=== PATIENT | male | born 1980 | race Caucasian/White ===

== ENCOUNTER 2022-06-08 14:12 | Emergency (ER) | payer OTHER ==
[2022-06-08 14:55] LABS: HEMOGLOBIN 15.2 gm/dl (14.0-17.5); RED BLOOD COUNT 5.19 M/UL (4.20-5.50); WHITE BLOOD COUNT 12.2 K/UL (4.5-11.0)
[2022-06-08 15:27] LABS: BUN/CREATININE RATIO 18 (0-10)
[2022-06-08] MEDS ORDERED: HYDROXYZINE HCL25 MG PO (16:33)
== END 2022-06-08 18:50 | disposition home or self-care (01) ==
LOC: ER1 14:12
PROVIDERS: Emergency Medicine
DX: F41.9 Anxiety disorder, unspecified (principal); R00.2 Palpitations
CPT/HCPCS: 71045; 80053; 82550; 82553; 84439; 84443; 84484; 85025; 85379; 93005; 93270; 96360; 99285

== ENCOUNTER → 2022-07-01 | Outpatient (CLI) | payer OTHER ==
[~2022-07-01] MED LIST: HYDROXYZINE HCL25 MG PO
== END ==
LOC: HEART CORB 11:31
DX: R00.2 Palpitations (principal); R07.2 Precordial pain; I10 Essential (primary) hypertension; R00.0 Tachycardia, unspecified; I07.1 Rheumatic tricuspid insufficiency
CPT/HCPCS: 93306